=== PATIENT | female | born 1985 | race Caucasian/White ===

== ENCOUNTER 2017-01-23 23:08 | Observation (INO) | payer OTHER ==
[~2017-01-23] VITALS: Ht 154.9 cm; Wt 89.4 kg
[2017-01-23 23:20] VITALS: BP 161/100
[2017-01-24] MEDS ORDERED: NACL 0.9% 1,000 ML IV ONE (00:30)
[2017-01-24] MEDS ORDERED: KETOROLAC 30 MG/ML VIAL IVP ONE (00:30)
--- NOTE | 2017-01-24 00:35 | NUR ---
31 Y/O F W/C/O LOW BACK PAIN AND LLQ PAIN, WITH VOMITING AND CHILLS X TODAY. MED BORN WITH ROSDISHY MARYSE SYNDROME, AND NO CERVIX. PT DENIES ANY SOB,CP AT THE MOMENT. PT AAOX4. BREATHING IS UNLABORED AND CLEAR BI LAT.
[2017-01-24 00:49] LABS: APPEARANCE,URINE CLOUDY (CLEAR); BILIRUBIN,URINE 1+ (NEGATIVE); BLOOD, URINE 3+ (NEGATIVE); COLOR,URINE BROWN (YELLOW); LEUKOCYTE ESTERASE ,URINE NEGATIVE (NEGATIVE); NITRITE, URINE NEGATIVE (NEGATIVE); UGLUCOSE NEGATIVE (NEGATIVE)
[2017-01-24 00:50] LABS: BASOPHILS # (AUTO) 0.5 K/uL (0.00-0.22); BASOPHILS % (AUTO) 4.1 % (0.0-2.0); EOSINOPHILS # (AUTO) 0.1 K/uL (0-0.4); EOSINOPHILS % (AUTO) 0.8 % (0.0-4.0); HEMATOCRIT 48.3 % (36-48); HEMOGLOBIN 15.7 g/dL (12.0-16.0); LYMPHOCYTES # (AUTO) 3.2 K/uL (2.5-16.5); LYMPHOCYTES % (AUTO) 24.5 % (20.5-51.1); MEAN CORPUSCULAR HEMOGLOBIN 29 pg (27-31); MEAN CORPUSCULAR HGB CONC 33 g/dL (33-37); MEAN CORPUSCULAR VOLUME 89 fL (80-94); MONOCYTES # (AUTO) 1.3 K/uL (0.8-1.0); MONOCYTES % (AUTO) 9.6 % (1.7-9.3); NEUTROPHILS # (AUTO) 7.9 K/uL (1.8-7.7); PLATELET COUNT (AUTO) 314 K/uL (140-450); RED BLOOD CELL COUNT(AUTO) 5.44 MIL/uL (4.20-5.40); RED CELL DISTRIBUTION WIDTH 12.3 % (11.6-13.7)
[2017-01-24 00:59] LABS: ANION GAP 15.2 (8-16); CARBON DIOXIDE 23.4 mmol/L (21-32); CREATININE 0.7 mg/dL (0.6-1.3); POTASSIUM 3.6 mmol/L (3.5-5.1)
[2017-01-24 01:04] LABS: ALBUMIN 4.3 g/dL (3.4-5.0); TOTAL BILIRUBIN 0.8 mg/dL (0.0-1.0)
[2017-01-24 01:05] LABS: RBC,URINE TOO NUMEROUS TO COUN /HPF (0-5); WBC,URINE 0-5 (RARE) /HPF (0-5)
[2017-01-24] MEDS ORDERED: DOCUSATE SODIUM 100 MG GELCAP PO PRN (02:35)
[2017-01-24] MEDS ORDERED: ACETAMINOPHEN 325 MG TAB PO PRN (02:35)
[2017-01-24] MEDS ORDERED: ONDANSETRON 4 MG/2 ML VIAL IM/IVP PRN (02:35)
[2017-01-24 03:03] LABS: CHOL/HDL RATIO 3.8 (1-4.5); FREE T4 (FREE THYROXINE) 1.18 ng/dL (0.76-1.46); MAGNESIUM 1.9 mg/dL (1.8-2.4); PHOSPHORUS 3.7 mg/dL (2.5-4.9); THYROID STIMULATING HORMONE 3.77 uIU/mL (0.34-3.74)
[2017-01-24 03:27] LABS: PROTHROMBIN TIME 10.9 secs (10.8-13.4)
[2017-01-24] MEDS: TAMSULOSIN 0.4 MG CAP PO SCH ×3 (03:55→20:22)
[2017-01-24] MEDS ORDERED: METOCLOPRAMIDE 10 MG/2 ML INJ VIAL IVP ONE (04:05)
[2017-01-24 06:50] LABS: BASOPHILS # (AUTO) 0.4 K/uL (0.00-0.22); BASOPHILS % (AUTO) 3.7 % (0.0-2.0); EOSINOPHILS # (AUTO) 0.1 K/uL (0-0.4); EOSINOPHILS % (AUTO) 1.1 % (0.0-4.0); HEMOGLOBIN 14.1 g/dL (12.0-16.0); LYMPHOCYTES # (AUTO) 2.8 K/uL (2.5-16.5); LYMPHOCYTES % (AUTO) 24.6 % (20.5-51.1); MEAN CORPUSCULAR HEMOGLOBIN 30 pg (27-31); MEAN CORPUSCULAR HGB CONC 35 g/dL (33-37); MEAN CORPUSCULAR VOLUME 88 fL (80-94); MONOCYTES # (AUTO) 0.7 K/uL (0.8-1.0); MONOCYTES % (AUTO) 6.3 % (1.7-9.3); NEUTROPHILS # (AUTO) 7.6 K/uL (1.8-7.7); NEUTROPHILS % (AUTO) 64.3 % (42.2-75.2); PLATELET COUNT (AUTO) 248 K/uL (140-450); RED BLOOD CELL COUNT(AUTO) 4.65 MIL/uL (4.20-5.40); RED CELL DISTRIBUTION WIDTH 12.1 % (11.6-13.7); WHITE BLOOD COUNT (AUTO) 11.6 K/uL (4.8-10.8)
--- NOTE | 2017-01-24 07:09 | NUR ---
Pt report given to KODY SHARP . Transfer of care at this time.
[2017-01-24 07:39] LABS: ANION GAP 13.8 (8-16); CARBON DIOXIDE 23.6 mmol/L (21-32); CREATININE 0.6 mg/dL (0.6-1.3); POTASSIUM 3.4 mmol/L (3.5-5.1)
--- NOTE | 2017-01-24 07:40 | NUR ---
Patient will be admitted to care of DR. OJEDA. Admited to TELE. Will go to room 126A. Belongings list completed. Report to GIGI SHARP.
--- NOTE | 2017-01-24 07:45 | NUR ---
RECEIVED PT VIA BRUNO, PT IS A/OX4, AMBULATORY, IV IS ON THE LEFT AC, PATENT,INTACT, FLUSHING WELL, NO S/S OF RESPIRATORY DISTRESS OR DISCOMFORT NOTED, DISCUSSED PLAN OF CARE WITH PT, PT VERBALIZED UNDERSTANDING, ORIENTED PT TO ROOM, SAFETY/FALL PRECAUTIONS ARE IN PLACE, CALL LIGHT IS WITHIN REACH, WILL CONTINUE TO MONITOR.
[2017-01-24 08:00] VITALS: BP 126/74
[2017-01-24] MEDS: NACL 0.9% 1,000 ML IV SCH (08:00)
--- NOTE | 2017-01-24 09:00 | NUR ---
PATIENT'S IVF STARTED AT 40ML/HR ON LEFT AC.
--- NOTE | 2017-01-24 10:03 | NUR ---
PATIENT HAS BEEN SCREENED AND CATEGORIZED MODERATE NUTRITION RISK. PATIENT WILL BE SEEN WITHIN 3-5 DAYS OF ADMISSION. 01/26/17-01/28/[address]
[2017-01-24 12:00] VITALS: BP 122/73
--- NOTE | 2017-01-24 13:00 | NUR ---
PT OFF UNIT, TAKEN TO OR FOR PROCEDURE.
[2017-01-24] MEDS ORDERED: PROPOFOL 200 MG/20 ML VIAL IV ONE (13:01)
[2017-01-24] MEDS ORDERED: LIDOCAINE 2% 100 MG/5 ML UJET TP ONE (13:01)
[2017-01-24] MEDS ORDERED: SEVOFLURANE 250 ML BTL INH ONE (13:01)
[2017-01-24] MEDS ORDERED: fentaNYL 0.05 MG/ML VIAL ONE (13:16)
[2017-01-24] MEDS ORDERED: MIDAZOLAM 2 MG/2 ML VIAL ONE (13:16)
[2017-01-24] MEDS ORDERED: ONDANSETRON 4 MG/2 ML VIAL IVP PRN (13:25)
[2017-01-24] MEDS ORDERED: HYDROmorphone 1 MG/ML AMP IVP PRN (13:25)
--- NOTE | 2017-01-24 14:30 | NUR ---
PT RETURNED TO UNIT, PT IS A/OX4, NO S/S OF RESPIRATORY DISTRESS OR DISCOMFORT NOTED, CALL LIGHT IS WITHIN REACH, WILL CONTINUE TO MONITOR.
[2017-01-24] MEDS ORDERED: POTASSIUM CHLORIDE 40 MEQ, LIDOCAINE 1% 25 MG in NACL 0.9% 250 ML IV ONE (15:20)
[2017-01-24 16:00] VITALS: BP 137/91
--- NOTE | 2017-01-24 16:30 | NUR ---
PT IS RESTING IN BED AT THIS TIME, FAMILY IS AT BEDSIDE.
[2017-01-24] MEDS: MORPHINE SULFATE 2 MG/ML SYR IVP PRN ×2 (18:54→23:29)
[2017-01-24] MEDS: HYOSCYAMINE 0.125 MG TAB PO PRN (18:54)
--- NOTE | 2017-01-24 19:30 | NUR ---
PT ENDORSED TO SANDER WOODEN PENCILS NURSE FOR CONTINUITY OF CARE, PT STABLE AT THIS TIME.
--- NOTE | 2017-01-24 19:30 | NUR ---
ASSUMED CARE OF PATIENT, AWAKE, JUST GIVEN IV MEDS FOR PAIN. NO COMPLAINS. FAMILY AT BEDSIDE. CALL LIGHT WITHIN REACH.
--- NOTE | 2017-01-24 20:00 | NUR ---
CARE BOARD UPDATED. PLAN OF CARE DISCUSSED WITH PATIENT AND FAMILY MEMBER, VERBALIZED UNDERSTANDING WELL. CALL LIGHT WITHIN REACH.
--- NOTE | 2017-01-25 | NUR ---
PAIN MEDICATION GIVEN REQUESTED. VITAL SIGNS STABLE. AFEBRILE. CALL LIGHT WITHIN REACH.
[2017-01-25 00:40] VITALS: BP 135/85
[2017-01-25] MEDS: NACL 0.9% 1,000 ML IV SCH (02:33)
[2017-01-25] MEDS: MORPHINE SULFATE 2 MG/ML SYR IVP PRN (04:41)
[2017-01-25 05:58] LABS: BASOPHILS # (AUTO) 0.4 K/uL (0.00-0.22); BASOPHILS % (AUTO) 3.8 % (0.0-2.0); EOSINOPHILS # (AUTO) 0.1 K/uL (0-0.4); HEMATOCRIT 40.3 % (36-48); HEMOGLOBIN 13.8 g/dL (12.0-16.0); LYMPHOCYTES # (AUTO) 2.8 K/uL (2.5-16.5); LYMPHOCYTES % (AUTO) 26.2 % (20.5-51.1); MEAN CORPUSCULAR HEMOGLOBIN 30 pg (27-31); MEAN CORPUSCULAR HGB CONC 34 g/dL (33-37); MEAN CORPUSCULAR VOLUME 88 fL (80-94); MONOCYTES # (AUTO) 0.7 K/uL (0.8-1.0); MONOCYTES % (AUTO) 6.3 % (1.7-9.3); NEUTROPHILS # (AUTO) 6.8 K/uL (1.8-7.7); NEUTROPHILS % (AUTO) 62.7 % (42.2-75.2); PLATELET COUNT (AUTO) 241 K/uL (140-450); RED BLOOD CELL COUNT(AUTO) 4.56 MIL/uL (4.20-5.40); RED CELL DISTRIBUTION WIDTH 12.1 % (11.6-13.7)
[2017-01-25 07:04] LABS: ANION GAP 14.7 (8-16); CARBON DIOXIDE 23.9 mmol/L (21-32); CREATININE 0.6 mg/dL (0.6-1.3); POTASSIUM 3.6 mmol/L (3.5-5.1)
--- NOTE | 2017-01-25 07:18 | NUR ---
ENDORSED CARE AT BEDSIDE WITH DILLON SHARP, PATIENT IN STABLE CONDITION.
[2017-01-25 07:21] LABS: WHITE BLOOD COUNT (AUTO) 10.8 K/uL (4.8-10.8)
--- NOTE | 2017-01-25 07:21 | NUR ---
RECEIVED PT REPORT AT BEDSIDE FROM NIGHT NURSE. PATIENT IS AAOX4 AND STATES 5/10 LOWER ABD PAIN. SCD'S IN PLACE. IV NOTED ON THE R AC WITH IVF'S INFUSING WELL. PT ON RA. PATIENT WAS EXPLAINED POC FOR TODAY AND VERBALIZED UNDERSTANDING. THE BED IS IN LOW POSITION, CALL LIGHT WITHIN REACH, CONTACT PRECAUTIONS IN PLACE. WILL CONTINUE TO MONITOR.
[2017-01-25 08:00] VITALS: BP 135/81
[2017-01-25] MEDS ORDERED: PHENAZOPYRIDINE 100 MG TAB PO SCH ×2 (08:45→16:30)
[2017-01-25] MEDS: TAMSULOSIN 0.4 MG CAP PO SCH (09:30)
[2017-01-25] MEDS: HYDROcodone/APAP 7.5/325 MG 1 TAB PO PRN ×2 (09:30→14:30)
--- NOTE | 2017-01-25 09:30 | NUR ---
PATIENT C/O PAIN 5/10 LOWER ABD PAIN GAVE NORCO 7.5/325 MG. ALSO GAVE LEVSIN 0.125 MG FOR BLADDER SPASMS. PATIENT'S NEEDS MET AT THIS TIME. WILL CONTINUE TO MONITOR.
[2017-01-25] MEDS: HYOSCYAMINE 0.125 MG TAB PO PRN ×2 (09:39→14:30)
--- NOTE | 2017-01-25 11:30 | NUR ---
PT SHOWS NO S/S OF ACUTE DISTRESS ON ROOM AIR. BED IN LOW POSITION WITH CALL LIGHT WITHIN REACH.
--- NOTE | 2017-01-25 14:00 | NUR ---
PATIENT BEING SEEN BY DR KAREN COX TO BE DISCHARGE. PT IS AWARE. PATIENT ASKED FOR LEVSIN0.125 MG PO. WILL ADMINISTER FOR BLADDER SPASMS.
[2017-01-25] MEDS ORDERED: ACET-9529 PO (14:12)
[2017-01-25] MEDS ORDERED: TAMS0.4C96 PO (14:15)
[2017-01-25] MEDS ORDERED: PHEN-1901 PO (14:17)
--- NOTE | 2017-01-25 14:30 | NUR ---
ADMINISTERED NORCO 7.5/325 MG PO FOR 6/10 LOWER ABD PAIN. PT WILL NOT BE DRIVING HOME AFTER DISCHARGE PT HAS FAMILY AT BEDSIDE.
[2017-01-25] MEDS ORDERED: KEFSUS PO (14:43)
[2017-01-25] MEDS ORDERED: HYOS-60 GT (14:44)
[2017-01-25] MEDS ORDERED: ACET-8386 PO (14:47)
[2017-01-25] MEDS ORDERED: ACET-2863 PO (14:47)
--- NOTE | 2017-01-25 15:20 | NUR ---
PT WAS GIVEN NEW MATERIALS TO TAKE HOME FOR CONTINUITY OF CARE, STRAINER, CYLINDER, AND HAT TO COLLECT URINE. PT HAS BEEN DISCHARGED. ALL DISCHARGE INSTRUCTIONS AND PRESCRIPTIONS IN PT POSSESSION. ALL PAPERWORK SIGNED AND ALL QUESTIONS ANSWER. ALL BELONGINGS AND PRESCRIPTIONS IN PT POSSESSION. IV DC WITH CANNULA INTACT. WRISTBANDS REMOVED. PATIENT LEFT UNIT IN STABLE CONDITION IN A WHEELCHAIR WITH FAMILY PRESENT AT SIDE. PT LEFT IN STABLE CONDITION.
== END 2017-01-25 15:05 | disposition home or self-care (01) ==
LOC: EEVIPCON 23:08 → MED 23:08 → MMU 01-24 02:32
PROVIDERS: ADMIT Family Medicine Sports Medicine; ATTEND Family Medicine Sports Medicine
DX: N13.2 Hydronephrosis with renal and ureteral calculous obstruction (principal); R65.10 Systemic inflammatory response syndrome (SIRS) of non-infectious origin without acute organ dysfunction; F43.9 Reaction to severe stress, unspecified; I10 Essential (primary) hypertension; R06.82 Tachypnea, not elsewhere classified; D72.829 Elevated white blood cell count, unspecified; R00.0 Tachycardia, unspecified; E78.5 Hyperlipidemia, unspecified; Q51.0 Agenesis and aplasia of uterus; Q60.0 Renal agenesis, unilateral
CPT/HCPCS: 36415; 52332; 76770; 80048; 80053; 81001; 81025; 83036; 83605; 83735; 84100; 84436; 84439; 84443; 84479; 85025; 85610; 85730; 87040; 87081; 96361; 96374; 96375; 96376; 99285; C1758; C1769; C1874; G0378; J1170; J1885; J2001; J2250; J2270; J2704; J2765; J3010; J3480; J7030; Q0092